=== PATIENT | female | born 1985 | race Two or more races ===

== ENCOUNTER → 2023-01-13 | Emergency (ER) | payer OTHER ==
[~2023-01-13] VITALS: Ht 170.2 cm; Wt 61.2 kg
[~2023-01-13] MED LIST: KETO10TA2 PO; ONDA4TAB11 PO
[2023-01-13 10:39] VITALS: BP 110/76; TEMP 98.4; O2SAT 98
== END | disposition home or self-care (01) ==
LOC: ER 09:25
DX: S00.33XA Contusion of nose, initial encounter (principal); Z60.2 Problems related to living alone; W01.198A Fall on same level from slipping, tripping and stumbling with subsequent striking against other object, initial encounter; Y93.89 Activity, other specified; Y92.89 Other specified places as the place of occurrence of the external cause; Y99.8 Other external cause status
CPT/HCPCS: 70450-TC; 70486-TC